=== PATIENT | female | born 1950 | race Caucasian/White ===

== ENCOUNTER 2018-03-08 08:52 | Inpatient (IN) | payer OTHER, MEDICARE ==
[~2018-03-08] VITALS: Ht 162.6 cm; Wt 65.8 kg
[~2018-03-08 08:52] MED LIST: AMBIEN5 M1 PO; AMIODARONE HCL200 M1 PO; ARTHRITIS PAIN650 M4 PO; ASPIRIN EC81 M1 PO; ATIVAN0.5 M1 PO; AUGMENTIN 875-1 EACH PO; BENADRYL25 MG PO; BENEFIBER1 EAC1 PO; BUPROPION XL150 MG PO; CIPRO500 M1 PO; COLACE100 M1 PO; COLCHICINE0.6 M2 PO; CYMBALTA60 M1 PO; DEMADEX20 M1 PO; DILAUDID2 M1 PO; FLAGYL500 MG PO; FONDAPARIN7.5 MG/0.6 SC; GABAPENTIN600 M1 PO; HYDROMORPHONE HC4 M1 PO; HYDROXYZIN SC; ITCH RELIEF CRE28 GM TOP; KEPPRA500 M1 PO; LEVOTHYROXINE50 MCG PO; LIDOCAINE1 EACH TOP; MELATONIN3 M4 PO; MIRALAX17 G1 PO; MORPHINE SULFAT15 M4 PO; MORPHINE SULFAT30 M3 PO; MS CONTIN30 M1 PO; MURO-12815 ML OU; PANTOPRAZOLE SO40 M1 PO; POTASSIUM CHLO20 ME2 PO; PREDNISONE 20MG20 MG PO; PREDNISONE10 M2 PO; PROVENTIL HFA6.7 GM INH; PYRIDOXINE HCL PO; RELISTOR12 MG/0.1 SQ; RILUTEK50 MG PO; SENNA8.6 M3 PO; TESSALON PERLE100 M1 PO; TUCKS1 EACH PR; TYLENOL EXTRA500 M2 PO; VALIUM5 M1 PO; VITAMIN B-650 M2 PO; VOLTAREN100 GM TOP; WELLBUTRIN XL150 M2 PO; WOMEN'S LAXATIVE5 M1 PO; ZOFRAN4 M2 PO
--- NOTE | 2018-03-08 08:57 | ED GENERAL ADULT ---
History of Present Illness General Chief Complaint: General Adult Stated Complaint: UNSAFE ALONE Source: patient, old records, EMS Exam Limitations: no limitations Allergies Coded Allergies: NSAIDS (Non-Steroidal Anti-Inflamma (PER VNS UNKNOWN REACTION 03/31/17) Pork/Porcine Containing Products (PER VNS 03/31/17) Triage Nurses Notes Reviewed? yes HPI: Patient has ALS and is dependent on home health services. The health care agency told her this morning that there were no longer be supplying her care and that she was unsafe at home so they called the ambulance to bring her to the emergency department. Patient has no current complaints. (Radha LOTT,Brad Talamantes) Vital Signs & Intake/Output Vital Signs & Intake/Output Vital Signs Date Time Temp Pulse Resp B/P B/P Pulse O2 O2 Flow FiO2 Mean Ox Delivery Rate 03/09 1344 98.0 92 20 174/88 98 Room Air 03/09 1133 97.9 94 20 138/84 98 Room Air 03/09 0916 98.5 90 20 181/95 97 Nasal 4.0L Cannula 03/09 0643 97.6 85 18 113/62 99 Nasal 35% Cannula 03/09 0527 80 20 99 BIPAP 35% 03/09 0516 81 98 03/09 0314 90 95 03/09 0230 81 20 98 BIPAP 35% 03/09 0104 89 97 03/09 0023 98.4 97 20 138/79 99 BIPAP 35% 03/08 2040 95 97 03/08 1921 98.2 95 16 173/82 98 Room Air ED Intake and Output 03/09 0000 03/08 1200 Intake Total 550 Output Total Balance 550 Intake, Oral 550 Number 3 Bowel Movements Patient 130 lb Weight Weight Estimated Measurement Method Reconcile Medications Acetaminophen 500 MG TABLET 2 TAB PO Q8H PRN PAIN (Reported) Albuterol Sulfate 2.5 MG/3 ML (0.083 %) VIAL.NEB 1 Vial INH/PORTIA Q6H SHORTNESS OF BREATH (Reported) Amiodarone (Cordarone) 200 MG TABLET 1 TAB PO QAM HEART (Reported) Aspirin (Ecotrin*) 81 MG TABLET.DR 1 TAB PO DAILY HEART/BLOOD (Reported) Bupropion HCl (Bupropion HCl Sr) 150 MG TABLET.ER 1 TAB PO BID DEPRESSION ( Reported) Colchicine 0.6 MG TABLET 1 TAB PO AD ALS (Reported) Duloxetine HCl (Cymbalta) 60 MG CAPSULE.DR 1 CAP PO DAILY DEPRESSION ( Reported) Fondaparinux Sodium 7.5 MG/0.6 ML SYRINGE 1 INJ SC DAILY DVT PPX -BLOOD THINNER (Reported) Gabapentin 600 MG TABLET 1 TAB PO TID PAIN (Reported) Ibuprofen 400 MG TABLET 1.5 TAB PO TID PRN PAIN (Reported) Levetiracetam (Keppra) 500 MG TABLET 1 TAB PO BID SEZIURE (Reported) Levothyroxine Sodium 50 MCG TABLET 1 TAB PO 0600 THYROID (Reported) Lorazepam (Ativan) 0.5 MG TABLET 1 TAB PO Q4H PRN ANXIETY (Reported) Lubiprostone (Amitiza) 24 MCG CAPSULE 1 CAP PO BID GI (Reported) Mag Hydrox/Al Hydrox/Simeth (Alum-Mag Hydroxide-Simeth Liq) 200 MG-200 MG-20 MG/ 5 ML ORAL.SUSP 30 ML PO Q6H PRN INDIGESTION (Reported) [METHYLCOBALAMIN] 25 MG INJ DAILY SUPPLEMENT (Reported) Methylnaltrexone [place] (Relistor) 12 MG/0.6 ML SYRINGE 12 MG SQ DAILY GI ( Reported) Mineral Oil/Hydrophil Petrolat (Aquaphor Ointment) 396 GM OINT...G. 1 DIANE TOP BID PRN SKIN (Reported) Morphine Sulfate (Ms Contin) 15 MG TABLET.ER 1 TAB PO TID PAIN (Reported) Morphine Sulfate 15 MG TABLET 1 TAB PO Q6P PRN PAIN (Reported) Naloxone HCl (Narcan) 4 MG/ACTUATION SPRAY 1 SPRAY SARI AD PRN UNRESPONSIVENESS (Reported) Ondansetron HCl (Zofran) 4 MG TABLET 1 TAB PO TID PRN NAUSEA (Reported) Pantoprazole Sodium 40 MG TABLET.DR 1 TAB PO BID GI (Reported) Polyethylene Glycol 3350 (Miralax) 17 GRAM POWD.PACK 1 PAC PO BID CONSTIPATION (Reported) dissolve in water Potassium Chloride 20 MEQ TAB.ER.PRT 40 MEQ PO QAM SUPPLEMENT (Reported) Pyridoxine HCl (Vitamin B-6) 50 MG TABLET 5 TAB PO DAILY SUPPLEMENT (Reported ) Riluzole (Rilutek) 50 MG TABLET 1 TAB PO BID als (Reported) Soft Lens Rinse-Store Solution (Saline Sensitive Eyes) 360 ML DROPS 2 DROP OU Q1H PRN DRY EYES (Reported) [TRIPLE MIX MOUTHWASH] 10 ML PO 4XDAILY PRN ACID REFLUX (Reported) Wheat Dextrin (Benefiber) 3 GRAM/4 GRAM POWD.PACK 1 PAC PO TID CONSTIPATION ( Reported) Witnando Beatriz (Tucks) (Unknown Strength) MED..PAD (Unknown Dose) MA 6XDAILY PRN HEMORRHOIDS (Reported) Zolpidem Tartrate (Ambien) 5 MG TABLET 1 TAB PO QHS SLEEP (Reported) (Malathi Candelaria MD) Past History Medical History Any Pertinent Medical History? see below for history Neurological: ALS meningioma EENT: NONE Cardiovascular: DRESSLERS SYNDROME Respiratory: chronic respiratory failure on 4 L nasal cannula and chronic BiPAP Gastrointestinal: NONE Hepatic: NONE Renal: NONE Musculoskeletal: NONE Psychiatric: NONE Endocrine: NONE Blood Disorders: NONE Cancer(s): NONE History of MRSA: No History of VRE: No History of CDIFF: No Surgical History Surgical History: appendectomy, hysterectomy Psychosocial History Who do you live with Patient/Self Services at Home Home Health Aide What is your primary language Spanish Tobacco Use: Never used ETOH Use: denies use Illicit Drug Use: denies illicit drug use Family History Family History, If Any: FATHER Myocardial infarction MOTHER Myocardial infarction Hx Contributory? No (Radha LOTT,Brad Talamantes) Review of Systems Review of Systems Constitutional: Reports: no symptoms. Respiratory: Reports: no symptoms. Cardiovascular: Reports: no symptoms. GI: Reports: no symptoms. Musculoskeletal: Reports: see HPI. Neurological/Psychological: Reports: no symptoms. (Radah LOTT,Brad Talamantes) Physical Exam Physical Exam General Appearance: well developed/nourished, no apparent distress, alert Eyes: Bilateral: PERRL, EOMI. Neck: normal inspection, supple Respiratory: normal breath sounds, chest non-tender, no respiratory distress, lungs clear Cardiovascular: regular rate/rhythm, murmur Neurologic/Psych: awake, alert, oriented x 3, normal mood/affect Core Measures ACS in differential dx? No CVA/TIA Diagnosis: No Sepsis Present: No Sepsis Focused Exam Completed? No (Radha LOTT,Brad Talamantes) Progress Differential Diagnoses I considered the following diagnoses in my evaluation of the patient: [Home safety evaluation] Initial ED EKG: none Hand-Off Endorsed To: Malathi Candelaria MD Endorsed Time: 1899 Pending: other (CASE MANAGEMENT) Comments: Case management is attempting to arrange for other home health aides. Patient to remain in the emergency department until a definitive disposition can it be obtained. (Radha LOTT,Brad Talamantes) Differential Diagnoses I considered the following diagnoses in my evaluation of the patient: Plan of Care: Orders Procedure Date/time Status ED Holding Orders 03/09 1625 Active Admit to inpatient 03/09 1625 Active Vital Signs 03/09 1625 Active Code Status 03/09 1625 Active CULTURE,URINE 03/09 1621 Active THERAPIST ORDERS 03/08 UNK Complete BIPAP 03/08 UNK Complete Current Medications Sig/Wendy Start time Last Medication Dose Stop Time Status Admin Ceftriaxone Sodium 1,000 MG ONCE ONE 03/09 1630 UNVr (Rocephin) 03/09 1631 Sodium Chloride 1,000 ML ONCE ONE 03/09 1630 UNVr (Normal Saline 0.9%) 03/10 0029 Zolpidem Tartrate 5 MG AT BEDTIME 03/08 2100 UNVr 03/08 (Ambien) 2105 Non-Formulary 7.5 UNIT DAILY 03/08 2015 UNVr 03/09 Medication 0903 (NON FORMULARY) Gabapentin 600 MG Q8 03/08 1400 UNVr 03/09 (Neurontin) 1415 Morphine Sulfate 30 MG Q6PRN PRN 03/08 1100 UNVr 03/09 (MSIR) 0903 Levetiracetam 500 MG BID 03/08 1045 UNVr 03/09 (Keppra) 0903 Levothyroxine Sodium 0.05 MG DAILY AC 03/08 1045 UNVr 03/09 (Synthroid) 0641 Bupropion HCl 150 MG BID 03/08 1044 UNVr 03/09 (Wellbutrin) 0903 Colchicine 600 MCG BID 03/08 1044 UNVr 03/09 (Colchicine 600MCG 0903 Tab) Docusate Sodium 100 MG BID 03/08 1044 UNVr 03/09 (Colace) 0903 Amiodarone HCl 200 MG DAILY 03/08 1043 UNVr 03/09 (Cordarone) 0903 Aspirin 81 MG DAILY 03/08 1043 UNVr 03/09 (Aspirin) 0903 Laboratory Tests 03/08/18 1815: Urine Color YEL, Urine Clarity HAZY H, Urine pH 7.0, Ur Specific [place] 1.015, Urine Protein NEG, Urine Ketones NEG, Urine Nitrite NEG, Urine Bilirubin NEG, Urine Urobilinogen 0.2, Ur Leukocyte Esterase LARGE H, Ur Microscopic SEDIMENT EXAMINED, Urine RBC RARE, Urine WBC 15-25 H, Ur Epithelial Cells FEW, Urine Bacteria MANY H, Urine Mucus RARE, Urine Hemoglobin NEG, Urine Glucose NEG Microbiology 03/09 1621 URINE ROUT: Urine Culture - ORD (Malathi Candelaria MD) Departure Departure Disposition: STILL A PATIENT Condition: Stable Clinical Impression Primary Impression: ALS (amyotrophic lateral sclerosis) Referrals: Noé LOTT,Yasmin Peng (PCP/Family) Departure Forms: Customer Survey General Discharge Information Admission Note Spoke With: Kayley Salazar MD Documentation of Exam: Documentation of any treatments & extenuating circumstances including Concerns Regarding Discharge (functional status, medication knowledge or non-compliance, living conditions, etc.) that warrant an admission rather than observation: [ Patient to be admitted for IV antibiotics, respiratory treatment, physical therapy, patient is very unsafe at home and will most likely need short-term rehabilitation.] (Radha LOTT,Brad Talamantes) Departure Comments Patient has been very stable tonight and is awaiting case management at 7:00 to reevaluate her for placement. She'll be signed out to Dr. Garcia. (Malathi Candelaria MD) Critical Care Note Critical Care Note Critical Care Time: non-applicable (Radha LOTT,Brad Talamantes)
[2018-03-08 14:02] LABS: ABSOLUTE BASOPHIL COUNT 0 /CUMM (0.0-0.2); ABSOLUTE EOSINOPHIL COUNT 0 /CUMM (0.0-0.7); ABSOLUTE GRANULOCYTE CT 4.4 /CUMM (1.4-6.5); ABSOLUTE LYMPH COUNT 1.2 /CUMM (1.2-3.4); ABSOLUTE MONOCYTE COUNT 0.6 /CUMM (0.10-0.60); BASOPHIL % 0 % (0.0-2.0); EOSINOPHIL % 0.1 % (0-5); HEMATOCRIT 32.8 % (37-47); MEAN CORPUSCULAR HGB 23.3 PG (27.0-31.0); MEAN CORPUSCULAR HGB CONC 31.4 G/DL (33.0-37.0); MEAN PLATELET VOLUME 9.7 FL (7.4-10.4); PLATELET COUNT 408 /CUMM (130-400); RBC DISTRIBUTION WIDTH 17.7 % (11.5-14.5); RED BLOOD CELL CT 4.43 /CUMM (4.20-5.40); WHITE BLOOD CELL COUNT 6.2 /CUMM (4.8-10.8)
[2018-03-08] MEDS ORDERED: ACETAMINOPHEN500 M4 PO (18:45)
[2018-03-08] MEDS ORDERED: ALBUTEROL2.5 MG/3 M INH/SOL (18:47)
[2018-03-08] MEDS ORDERED: AMIODARONE HCL200 M1 PO (18:48)
[2018-03-08] MEDS ORDERED: AMBIEN5 M1 PO (18:48)
[2018-03-08] MEDS ORDERED: AQUAPHOR OINTM396 GM TOP (18:51)
[2018-03-08] MEDS ORDERED: BUPROPION HCL150 M4 PO (18:53)
[2018-03-08] MEDS ORDERED: IBUPROFEN400 M1 PO (18:55)
[2018-03-08] MEDS ORDERED: AMITIZA24 MC1 PO (18:57)
[2018-03-08] MEDS ORDERED: ALUM-MAG HYDRO360 ML PO (18:59)
[2018-03-08] MEDS ORDERED: METHYLCOBALAMIN INJ (19:01)
[2018-03-08] MEDS ORDERED: NARCAN4 MG NAS (19:04)
[2018-03-08] MEDS ORDERED: RILUTEK50 MG PO (19:15)
[2018-03-08] MEDS ORDERED: SALINE SENSITI360 ML OU (19:16)
[2018-03-08] MEDS ORDERED: [UNRECOGNIZED DRUG - OTHER] PO (19:19)
[2018-03-08] MEDS ORDERED: TUCKS1 EACH PR (19:20)
--- NOTE | 2018-03-09 16:40 | History & Physical ---
Libby Mares 03/09/18 1640: General Information and HPI MD Statement: I have seen and personally examined DAILY SALGADO and documented this H&P. The patient is a 67 year old F who presented with a patient stated chief complaint of being denied by home health services Source of Information: patient History of Present Illness: 67 yo F with past medical history significant for ALS on Rilutek and infusion, chronic BiPAP, chronic respiratory failure on 4 L nasal cannula, Angela's syndrome, meningioma presents to the hospital after being denied services by home health services. She states she was in her usual state of health and had apparently gone to see a concert with her home health aide. She endorses a very healthy and pleasant rapport with the aide. Yesterday, apparently the patient was woken up by EMS personnel who were called by the home health agency to escort her to the hospital after they found her health requirements overbearing. She was surprised and shocked as she was apparently refused assistance to even go to the bathroom. The patient has been in the ED for 2 days now where she was evaluated by another health care agency which concluded that given her requrement of significant assistance she would benefit the most from placement at a fdc facility. She is emotionally distraught in the ED as she does not want to move out from her home especially without her cat. Allergies/Medications Allergies: Coded Allergies: NSAIDS (Non-Steroidal Anti-Inflamma (PER [facility] UNKNOWN REACTION 03/31/17) Pork/Porcine Containing Products (PER VNS 03/31/17) Home Med list Acetaminophen 500 MG TABLET 2 TAB PO Q8H PRN PAIN (Reported) Albuterol Sulfate 2.5 MG/3 ML (0.083 %) VIAL.NEB 1 Vial INH/PORTIA Q6H SHORTNESS OF BREATH (Reported) Amiodarone (Cordarone) 200 MG TABLET 1 TAB PO QAM HEART (Reported) Aspirin (Ecotrin*) 81 MG TABLET.DR 1 TAB PO DAILY HEART/BLOOD (Reported) Bupropion HCl (Bupropion HCl Sr) 150 MG TABLET.ER 1 TAB PO BID DEPRESSION ( Reported) Colchicine 0.6 MG TABLET 1 TAB PO BID ALS (Reported) Duloxetine HCl (Cymbalta) 60 MG CAPSULE.DR 1 CAP PO DAILY DEPRESSION ( Reported) Fondaparinux Sodium 7.5 MG/0.6 ML SYRINGE 1 INJ SC DAILY DVT PPX -BLOOD THINNER (Reported) Gabapentin 600 MG TABLET 1 TAB PO TID PAIN (Reported) Ibuprofen 400 MG TABLET 1.5 TAB PO TID PRN PAIN (Reported) Levetiracetam (Keppra) 500 MG TABLET 1 TAB PO BID SEZIURE (Reported) Levothyroxine Sodium 50 MCG TABLET 1 TAB PO 0600 THYROID (Reported) Lidocaine (Lidoderm) 5 % ADH..PATCH 1 PAT TOP DAILY PAIN (Reported) may wear up to 12 hours Lorazepam (Ativan) 0.5 MG TABLET 1 TAB PO Q4H PRN ANXIETY (Reported) Lubiprostone (Amitiza) 24 MCG CAPSULE 1 CAP PO BID GI (Reported) Mag Hydrox/Al Hydrox/Simeth (Alum-Mag Hydroxide-Simeth Liq) 200 MG-200 MG-20 MG/ 5 ML ORAL.SUSP 30 ML PO Q6H PRN INDIGESTION (Reported) Melatonin 3 MG TABLET 1 TAB PO QPM SLEEP (Reported) [METHYLCOBALAMIN] 25 MG INJ DAILY SUPPLEMENT (Reported) Methylnaltrexone [place] (Relistor) 12 MG/0.6 ML VIAL 12 MG IV Q48H OPIOD CONSITPATION (Reported) Methylnaltrexone [place] (Relistor) 12 MG/0.6 ML SYRINGE 12 MG SQ DAILY GI ( Reported) Mineral Oil/Hydrophil Petrolat (Aquaphor Ointment) 396 GM OINT...G. 1 DIANE TOP BID PRN SKIN (Reported) Morphine Sulfate (Ms Contin) 30 MG TABLET.ER 1 TAB PO TID PAIN (Reported) Naloxone HCl (Narcan) 4 MG/ACTUATION SPRAY 1 SPRAY SARI AD PRN UNRESPONSIVENESS (Reported) Ondansetron HCl (Zofran) 4 MG TABLET 1 TAB PO TID PRN NAUSEA (Reported) Pantoprazole Sodium 40 MG TABLET.DR 1 TAB PO BID GI (Reported) Polyethylene Glycol 3350 (Miralax) 17 GRAM POWD.PACK 1 PAC PO BID CONSTIPATION (Reported) dissolve in water Potassium Chloride 20 MEQ TAB.ER.PRT 40 MEQ PO QAM SUPPLEMENT (Reported) Pyridoxine HCl (Vitamin B-6) 50 MG TABLET 250 MG PO QNOON VITAMIN (Reported) Pyridoxine HCl (Vitamin B-6) 50 MG TABLET 5 TAB PO DAILY SUPPLEMENT (Reported ) Riluzole (Rilutek) 50 MG TABLET 1 TAB PO BID als (Reported) Sennosides (Senna) 8.6 MG TABLET 2 TAB PO QPM CONSTIPATION (Reported) Soft Lens Rinse-Store Solution (Saline Sensitive Eyes) 360 ML DROPS 2 DROP OU Q1H PRN DRY EYES (Reported) Torsemide (Demadex) 20 MG TABLET 40 MG PO QAM FLUID (Reported) [TRIPLE MIX MOUTHWASH] 10 ML PO 4XDAILY PRN ACID REFLUX (Reported) Wheat Dextrin (Benefiber) 3 GRAM/4 GRAM POWD.PACK 1 PAC PO TID CONSTIPATION ( Reported) Witch Beatriz (Tucks) (Unknown Strength) MED..PAD (Unknown Dose) [place] 6XDAILY PRN HEMORRHOIDS (Reported) Zolpidem Tartrate (Ambien) 5 MG TABLET 1 TAB PO QHS SLEEP (Reported) Past History Travel History Traveled to [place] past 21 day No Medical History Neurological: ALS meningioma EENT: NONE Cardiovascular: DRESSLERS SYNDROME Respiratory: chronic respiratory failure on 4 L nasal cannula and chronic BiPAP Gastrointestinal: NONE Hepatic: NONE Renal: NONE Musculoskeletal: NONE Psychiatric: NONE Endocrine: NONE Blood Disorders: NONE Cancer(s): NONE History of MRSA: No History of VRE: No History of CDIFF: No Surgical History Surgical History: appendectomy, hysterectomy Past Family/Social History Family History Relations & Conditions if any FATHER Myocardial infarction MOTHER Myocardial infarction Psychosocial History Services at Home: Home Health Aide ETOH Use: denies use Illicit Drug Use: denies illicit drug use Functional Ability ADLs Needs Assist: dressing, eating, toileting, bathing. Ambulation: walker IADLs Needs Assist: shopping, housework, finances, food prep, telephone, transportation, medication admin. Review of Systems Review of Systems Constitutional: Denies: chills, diaphoresis, fever, malaise. Cardiovascular: Denies: chest pain, edema, orthopena, palpitations, peripheral edema. Respiratory: Denies: cough, hemoptysis, orthopnea, short of breath. GI: Reports: constipation. Denies: diarrhea, distention, bowel incontinence, melena , nausea, bloody stool, vomiting. Genitourinary: Denies: discharge, dysuria, frequency, hematuria. Musculoskeletal: Reports: joint pain, joint swelling, muscle stiffness. Skin: Denies: change in skin color, change in hair/nails, dryness. Neurological/Psychological: Reports: depressed, emotional problems, pre-existing deficit, unable to move upper ext. Hematologic/Endocrine: Denies: bruising, bleeding. Exam & Diagnostic Data Last 24 Hrs of Vital Signs/I&O Vital Signs Date Time Temp Pulse Resp B/P B/P Pulse O2 O2 Flow FiO2 Mean Ox Delivery Rate 03/098 97.5 90 16 144/80 97 BIPAP 03/09 2125 90 97 03/09 2013 98.8 99 24 164/100 96 Nasal 5.0L Cannula 03/09 1900 97 Nasal 4.0L Cannula 03/09 1742 98.6 94 20 159/83 96 Nasal 4.0L Cannula 03/09 1344 98.0 92 20 174/88 98 Room Air 03/09 1133 97.9 94 20 138/84 98 Room Air 03/09 0916 98.5 90 20 181/95 97 Nasal 4.0L Cannula 03/09 0643 97.6 85 18 113/62 99 Nasal 35% Cannula 03/09 0527 80 20 99 BIPAP 35% 03/09 0516 81 98 03/09 0314 90 95 03/09 0230 81 20 98 BIPAP 35% 03/09 0104 89 97 03/09 0023 98.4 97 20 138/79 99 BIPAP 35% Intake & Output 03/09 1600 03/09 0800 03/09 0000 Intake Total 120 550 Output Total 200 Balance -80 550 Intake, Oral 120 550 Number 3 Bowel Movements Output, Urine 200 Physical Exam General Appearance Alert, Oriented X3, Cooperative, Mild Distress Skin No Rashes Sepsis Skin Exam (color): Normal for Ethnicity Neck Supple Cardiovascular Regular Rate, Normal S1, Normal S2 Lungs Clear to Auscultation Abdomen Normal Bowel Sounds, Soft, No Tenderness Neurological Normal Gait, Normal Speech, Strength at 5/5 X4 Ext Extremities No Edema, Normal Pulses, right knee brace with knee swelling and limited ROM Assessment/Plan Assessment: This is a 67 yo Female medical history significant for ALS on Rilutek and infusion, chronic BiPAP, chronic respiratory failure on 4 L nasal cannula, Angela's syndrome, meningioma who was brought to the ED after home health services denied her care.Given her current state of health, she is an extremely unsafe discharge home and was hence admitted to [facility] service to ascertain a plan of care for her. Her vitals in the ED were stable. Labs were only significant for asymptomatic bacteuria. Problems: 1. ALS 2. Asymptomatic bacteuria 3. Right knee sprain 4. Poor social situation Plan: 1. We will admit the patient to Gen Med service 2. Encourage oral hydration 3 . PT evaluation in the Am 4. Case management evaluation 5. Social work consult 6. We would call the infusion centre at [facility] informing them that the patient has been admitted to the hospital. DVT prophylaxis: Fondaparinux Code status: Full code As Ranked By This Provider Problem List: 1. ALS (amyotrophic lateral sclerosis) 2. Asymptomatic bacteriuria 3. Knee sprain 4. Poor social situation Core Measures/Misc (04/03) Acute Coronary Syndrome ACS Diagnosis: No Congestive Heart Failure Congestive Heart Failure Diagnosis No Cerebrovascular Accident CVA/TIA Diagnosis: No VTE (View Protocol) VTE Risk Factors Age>40 No Mechanical VTE Prophylaxis d/t N/A MechProphylax Ordered No VTE Pharm Prophylaxis d/t NA PharmProphylax ordered Sepsis (View protocol) Sepsis Present: No If YES complete Sepsis Event Note If YES complete Sepsis Event Note Kayley Salazar MD 03/09/18 1756: Core Measures/Misc (04/03) Sepsis (View protocol) If YES complete Sepsis Event Note If YES complete Sepsis Event Note Attending MD Review Statement Attending Statement Attending MD Statement: examined this patient, discuss w/resident/PA/CUT PRESSMAN, agreed w/resident/PA/CUT PRESSMAN, reviewed EMR data (avail), discussed with nursing, discussed with case mgmt, amended to note Attending Assessment/Plan: Patient is a very pleasant 67-year-old female with history of ALS. She is on home oxygen and requires BiPAP therapy at night and sometimes during the day. At baseline she is wheelchair-bound and requires assistance of 1 aide. She is able to operate her electric wheelchair by herself. She is able to perform some activities such as gardening. She reports being able to usual state of health until later on during the day yesterday when she awoke and found for emergency services personnel around her bed. Apparently her home health aid stated that she was unable to fully care for the patient and left calling 911. There was no reported acute change in patient's status. Apparently the agency stated that they would not be able to provide the level of care that the patient required. In the ER yesterday she was evaluated by the agency on aging care team to determine if another home care agency could be obtained for the patient. However patient was unable to participate in physical therapy so the recommendation from the agency was that she should be admitted to the fdc facility however for physical condition is optimized and then reevaluated for reinstatement of another home care agency. Patient is understandably very upset about this. She reports that she was given on along well with her aide. She reports that he has been no change in her functional status at home. She would very much like to go home however she is currently not safe to return home alone and has no care plan in place for now. Workup in the emergency room has been unrevealing. She is afebrile. She is hemodynamically stable. She has no leukocytosis. She has chronic anemia which is at baseline. She was noted to have mildly abnormal UA however she denies any dysuria or urinary frequency. She did receive a dose of Rocephin while in the emergency room today. On examination she is a very pleasant lady. She is not in any respiratory distress. She is emotionally distraught about being in the hospital. She has contraction deformity of her hands. She has a knee brace in place on the right knee following a fall about a week ago. Imaging at that time showed no evidence of any fracture. Lungs are clear bilaterally. Abdomen is soft and nontender. Problems: 1. Physical deconditioning secondary to ALS. 2. Chronic hypoxic respiratory failure. Plan: -At this point in time patient is unsafe to return home alone. She has no safe home discharge plan. -She will be admitted to the hospital and will be evaluated by the physical therapy service. -If her functional status returns to the point where she requires only the assistance of 1 aide she may be discharged back home. If she continues to require significant assistance she will benefit from being discharged to a fdc facility for short-term rehabilitation. -She has an abnormal UA but no clinical evidence of infection are present. Hold off further antibiotic therapy. -Continue oxygen supplementation. BiPAP therapy at night and during the daytime when she is asleep. -Chemical DVT prophylaxis. -She has a PICC line in place him have left upper extremity. She reports that she is under the care of the net developer at [facility] and receives infusion therapy for her ALS. She has an appointment scheduled with her net developer tomorrow. Recommended following up with the net developer to notify them that she is hospitalized here at [facility] Arnold LOTT,Kevin 03/09/18 1946: Core Measures/Misc (04/03) Sepsis (View protocol) If YES complete Sepsis Event Note If YES complete Sepsis Event Note Resident Review Statement Resident Statement: examined this patient, discussed with internet merchant, amended to note Other Findings: 67-year-old very pleasant lady with a medical history significant for ALS on Rilutek and infusion, chronic BiPAP, chronic respiratory failure on 4 L nasal cannula, Angela's syndrome, meningioma, presents to [facility] ED after being brought in by ambulance after apparently the [facility] aide activated EMS because the aide felt that she was no longer able to provide the level of care of the patient needed. Patient at baseline is wheelchair bound due to her progressive ALS, and is not independent with her ADLs. She was evaluated yesterday at the ED for placement with a nursing agency but was not able to participate in PT session. She cannot be sent home as this will be an unsafe given she currently does not have any home health aid services. Impression Generalized malaise and physical deconditioning. This is probably secondary to her deteriorating ALS. Positive UA suggestive of bacteria, however a symptomatic with no leukocytosis. Plan We'll admit to GEN med Asymptomatic bacteriuria, stop antibiotics. PT evaluation tomorrow morning Case management tomorrow morning Social work tomorrow morning Continue all home meds Will contat [facility] [place] to notify patient has been admitted DVT:On arixtra Code status:FC
--- NOTE | 2018-03-09 17:56 | Admission Certification ---
Admission Certification Certification Statement - As attending physician, I certify that at the time of - admission, based on clinical presentation, severity of - symptoms, need for further diagnostic testing and - therapeutic interventions, and risk of adverse outcomes - without in-hospital treatment, in my clinical assessment, - this patient requires an acute hospital stay for a minimum - of two nights or longer. I have also considered psychsocial - factors such as support system, advanced age, financial - issues, cognitive issues, and failed out-patient treatments, - past re-admission history, safety of patient, and lack of - compliance as applicable. Specific rationale supporting this admission is: Patient has been hospitalized with plans to arrange for a safe discharge plan.
[2018-03-09 20:13] VITALS: BP 164/100
[2018-03-09] MEDS ORDERED: RELISTOR12 MG/0.2 IV (20:22)
[2018-03-09] MEDS ORDERED: SENNA8.6 M3 PO (20:24)
[2018-03-09] MEDS ORDERED: VITAMIN B-650 M2 PO (20:25)
[2018-03-09] MEDS ORDERED: LIDODERM1 EACH TOP (20:26)
[2018-03-09] MEDS ORDERED: MELATONIN3 M4 PO (20:26)
[2018-03-09] MEDS ORDERED: DEMADEX20 M1 PO (20:27)
[2018-03-09 22:58] VITALS: BP 144/80
[2018-03-10 06:30] VITALS: BP 130/80
--- NOTE | 2018-03-10 07:40 | PN- Housestaff ---
Libby Mares 03/10/18 0740: Subjective Follow-up For: Asymtomatic bacteurai Subjective: Patient was seen and examined at bedside. She is tearful and is not able to talk. She does display suicidal ideation. Review of Systems Constitutional: Reports: see HPI. Objective Last 24 Hrs of Vital Signs/I&O Vital Signs Date Time Temp Pulse Resp B/P B/P Pulse O2 O2 Flow FiO2 Mean Ox Delivery Rate 03/11 1059 90 128/84 03/11 0809 90 97 03/11 0629 98.0 84 20 108/64 95 03/11 0025 81 95 03/11 0000 BIPAP 03/10 2300 98.1 78 20 110/60 93 Nasal Cannula 03/10 1932 110 94 03/10 1600 Nasal 4.0L Cannula 03/10 1447 98.4 91 20 114/60 96 Nasal 5.0L Cannula Intake & Output 03/11 1600 03/11 0800 03/11 0000 Intake Total 120 610 Output Total 100 210 Balance 20 400 Intake, Oral 120 610 Output, Urine 100 210 Physical Exam General Appearance: Alert, Oriented X3, Cooperative, No Acute Distress Neck: Supple Cardiovascular: Regular Rate, Normal S1, Normal S2 Lungs: Clear to Auscultation Extremities: No Edema, Normal Pulses Assessment/Plan Assessment: This is a 67 yo Female medical history significant for ALS on Rilutek and infusion, chronic BiPAP, chronic respiratory failure on 4 L nasal cannula, Angela's syndrome, meningioma is admitted to the [facility] service after home health services denied her care.Given her current state of health, she is an extremely unsafe discharge home and was hence admitted to [facility] service to ascertain a plan of care for her. Her vitals in the ED were stable. Labs were only significant for asymptomatic bacteuria. Problems: 1. ALS 2. Asymptomatic bacteuria 3. Right knee sprain 4. Poor social situation Plan: 1. Pscych consult for suidcidal ideation, questionable intent 2. Encourage oral hydration 3 . PT evaluation in the Am 4. Case management evaluation 5. Social work consult 6. We would call the infusion centre at [facility] informing them that the patient has been admitted to the hospital. I was called by he nurse regarding some confusion regarding dose of Fondaparinux. Apparently, the patient was given the wrong dose in the morining in the morning. The nurse states she reported the incident to the rainbow trout farm manager. DVT prophylaxis: Fondaparinux Code status: Full code Problem List: 1. Asymptomatic bacteriuria 2. ALS (amyotrophic lateral sclerosis) 3. Suicidal ideation 4. Knee sprain Pain Ratin Pain Location: none Pain Goal: Remain pain free Pain Plan: none Tomorrow's Labs & Rationales: none Flor Cedillo 03/10/18 1049: Attending MD Review Statement Attending Statement Attending MD Statement: examined this patient, discuss w/resident/PA/MECHANIC AND WELDER, agreed w/resident/PA/MECHANIC AND WELDER, discussed with family, reviewed EMR data (avail), discussed with nursing, discussed with case mgmt, reviewed images, amended to note Attending Assessment/Plan: 67-year-old female with history of ALS. She is on home oxygen and requires BiPAP therapy at night and sometimes during the day. At baseline she is wheelchair-bound and requires assistance of 1 aide. She is able to operate her electric wheelchair by herself. She is able to perform some activities such as gardening Apparently her home stereo equipment installer stated that she was unable to fully care for the patient and left calling 911. There was no reported acute change in patient's status. Apparently the agency stated that they would not be able to provide the level of care that the patient required. In the ER yesterday she was evaluated by the agency on aging care team to determine if another home care agency could be obtained for the patient. However patient was unable to participate in physical therapy so the recommendation from the agency was that she should be admitted to the [facility] facility however for physical condition is optimized and then reevaluated for reinstatement of another home care agency. Patient seen/examined bedside. Patient tearful at conversation. Vitals stable. No suicidal ideations Problems: 1. Physical deconditioning secondary to ALS. 2. Chronic hypoxic respiratory failure. 3. ALS on infusion therapy recently diagnosed 4 years ago. 4. Assistance with daily activities 5. Depressive behaviour Plan: -Social admission -She will be admitted to the hospital and will be evaluated by the physical therapy service. -If her functional status returns to the point where she requires only the assistance of 1 aide she may be discharged back home. If she continues to require significant assistance she will benefit from being discharged to a [facility] facility for short-term rehabilitation. -Continue oxygen supplementation. BiPAP therapy at night and during the daytime when she is asleep. -Pyshc consult. Provide supportive care for ALS. -She has a PICC line in place him have left upper extremity. She reports that she is under the care of the electrical discharge machine operator at [facility] and receives infusion therapy for her ALS. Inform her electrical discharge machine operator. -Chemical DVT prophylaxis.
[2018-03-10 09:02] LABS: ABSOLUTE BASOPHIL COUNT 0 /CUMM (0.0-0.2); ABSOLUTE EOSINOPHIL COUNT 0 /CUMM (0.0-0.7); ABSOLUTE GRANULOCYTE CT 4.2 /CUMM (1.4-6.5); ABSOLUTE LYMPH COUNT 1.9 /CUMM (1.2-3.4); ABSOLUTE MONOCYTE COUNT 0.6 /CUMM (0.10-0.60); BASOPHIL % 0.3 % (0.0-2.0); EOSINOPHIL % 0.5 % (0-5); GRANULOCYTE % 62.2 % (42.2-75.2); HEMATOCRIT 31.8 % (37-47); MEAN CORPUSCULAR HGB 23.3 PG (27.0-31.0); MEAN CORPUSCULAR HGB CONC 30.9 G/DL (33.0-37.0); MEAN CORPUSCULAR VOLUME 75.3 FL (81.0-99.0); MEAN PLATELET VOLUME 10.5 FL (7.4-10.4); PLATELET COUNT 408 /CUMM (130-400); RBC DISTRIBUTION WIDTH 17.5 % (11.5-14.5); RED BLOOD CELL CT 4.23 /CUMM (4.20-5.40); WHITE BLOOD CELL COUNT 6.7 /CUMM (4.8-10.8)
--- NOTE | 2018-03-10 14:24 | Cons- Psychiatry ---
Psychiatric Consult Date of Consult: 03/10/18 Reason for Consult: Assessment of suicidal ideation History of Present Illness: "Maybe I will just take a gun and shoot myself" The patient is a 67-year-old female has a history of ALS, chronic BiPAP, chronic respiratory failure on continuous O2, Angela's syndrome and meningioma. The patient has been living at home with 24 hour care. She denies any difficulties with her home situation. On the morning prior to presentation she was awoken in her bed by EMS. They told her that it had been determined that she was no longer able to live at home and that she needed to go to a detention. The patient called the nursing agency to inquire as to what was going on says she was informed that they "dropped the case". The patient spent 2 days in the emergency room during which time she was assessed by another healthcare agency who also determined that she needed more than home-based care. The patient reports that on the night prior to presentation she had taken her age to a concert, they had gone for ice cream and spent time at the beach. He was enjoyable evening and she is very distressed that her age and you have the plan to have her removed from her home the next day. While at physical therapy today the patient reported that she might as well be . She states that her mood has been good until the events mentioned above. She has been sleeping and eating well. Concentration is good. She has not been and is not suicidal "I may say that but I would never do it". She is however very distressed at the prospect of going to a detention. There are no psychotic symptoms. Per the patient and case management, some of the statements made by the healthcare agency were erroneous. The patient has a Tatianna lift which she used for only 3 days when she had a cast on her leg and is not dependent on it. She walked to the bathroom here on 8 at this morning. The patient is being reassessed by her home care agency this afternoon and hopes to be allowed to return home when medically cleared. Past psychiatric history: The patient is on duloxetine. This was prescribed for her when she was hospitalized 3 years ago and diagnosed with ALS, Angela syndrome and meningioma. She has never been hospitalized psychiatrically. She has no other psychiatric history. There is no history of deliberate self-harm or suicide attempts. Substance use history: None Family psychiatric history: None Social and personal history: The patient was brought up in [place], [place] and later [facility]. She is Gnosticism. She has an [employer] from [employer]. 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 She was for a brief time and has 1 daughter, Cecy to whom she is very close. She has a brother who is a urologist in [place] and a sister who lives in [facility]. She seems to have good relationships with them also. As mentioned she has been living alone with home care. Her daughter spends 2 or 3 days a week with her and [place]. Allergies: Coded Allergies: NSAIDS (Non-Steroidal Anti-Inflamma (PER VNS UNKNOWN REACTION 03/31/17) Pork/Porcine Containing Products (PER VNS 03/31/17) Current Medications: Med Acetaminophen 1,000 MG IV Q6P PRN 03/09/18 1715 Acetaminophen 650 MG PO Q6P PRN 03/09/18 204 Amiodarone HCl 200 MG PO QAM 03/10/18 0900 Aspirin Buffered 81 MG PO DAILY 03/10/18 0900 Bupropion HCl 150 MG PO BID 03/09/18 2100 Colchicine 600 MCG PO BID 03/09/18 2100 Docusate Sodium 100 MG PO BID 03/08/18 1044 Duloxetine HCl 60 MG PO DAILY 03/10/18 0900 Fondaparinux 7.5 MG SC DAILY 03/11/18 0900 Gabapentin 600 MG PO Q8 03/09/18 2200 Levetiracetam 500 MG PO BID 03/09/18 2100 Levothyroxine Sodium 0.05 MG PO 0600 03/10/18 0600 Lorazepam 0.5 MG PO Q4P PRN 03/09/18 2000 Lubiprostone 24 MCG PO BID 03/09/18 2100 Morphine Sulfate 30 MG PO Q6PRN PRN 03/08/18 1100 Morphine Sulfate 30 MG PO TID 03/09/18 2100 Morphine Sulfate 1 MG IV Q6-PRN PRN 03/09/18 204 Omeprazole 40 MG PO BID 03/09/18 2100 Ondansetron HCl 4 MG PO TID PRN 03/09/182014 Polyethylene Glycol 17 GM PO DAILY 03/09/182008 Potassium Chloride 40 MEQ PO QAM 03/10/18 0900 Pyridoxine HCl 250 MG PO DAILY 03/10/18 0900 Riluzole 50 MG PO 0600,1600 03/10/18 0600 Zolpidem Tartrate 5 MG PO QPM 03/09/18 2100 Past History Past Medical History Neurological: ALS meningioma EENT: NONE Cardiovascular: DRESSLERS SYNDROME Respiratory: chronic respiratory failure on 4 L nasal cannula and chronic BiPAP Gastrointestinal: HEMMROIDS Hepatic: NONE Renal: NONE Musculoskeletal: NONE Psychiatric: NONE Endocrine: NONE Blood Disorders: NONE Cancer(s): NONE Past Surgical History Surgical History: appendectomy, hysterectomy Assessment/Plan Mental Status Mental Status Exam: 67-year-old female wearing an orange been done, slightly slumped to one side. Alert and oriented. Very pleasant with good eye contact. Speech normal in rate , rhythm, volume and tone. At the end of the interview she is weak and somewhat which was reflected in the volume and rate of her speech. She described her mood overall is good, her affect showed good range. She was not suicidal or homicidal. The patient is very hopeful that she can return home as she is being seen by the agency later this afternoon. Thought process is normal in tempo, stream and form with no delusions or obsessions. Attention and concentration are good. There is no perceptual abnormality. Impulse control is good. Recent and remote memory are intact. Intelligence level is above average, fund of knowledge above average, use of language appropriate. The patient's insight is good and her judgment is unimpaired. Diffential Diagnosis: History of depression in full sustained remission. Impression: The patient does not have a psychiatric illness at this time. She has a history of depression and is maintained on duloxetine prescribed by her primary care doctor. She is not suicidal. Her statement was a reaction to a very significant psychosocial stressor and according to the patient did not suggest intent. Consciousness is clear, judgment unimpaired. Provisional Treatment Plan: No psychiatric intervention required at this time. Psychiatry will sign off for now. Please feel free to contact us if we can be of any further assistance. Over the weekend or after 4 PM psychiatry can be contacted by calling Inpatient Psychiatry.
[2018-03-10 14:47] VITALS: BP 114/60
--- NOTE | 2018-03-10 15:43 | Patient Discharge Instructions ---
Discharge Instructions General Discharge Information You were seen/treated for: Asymptomatic bacteuria Special Instructions: 1. Please see your appointment with your primnary care doctor within a week of discharge. 2. Please re-schedule your appointment at [facility] for your ALS medications Diet Continue normal diet: Yes Acute Coronary Syndrome Inclusion Criteria At DC or during hospital stay patient has or had the following: ACS DIAGNOSIS No Discharge Core Measures Meds if any: Prescribed or Continued at Discharge Meds if any: NOT Prescribed or Continued at Discharge Congestive Heart Failure Inclusion Criteria At DC or during hospital stay patient has or had the following: CHF DIAGNOSIS No Discharge Core Measures Meds if any: Prescribed or Continued at Discharge Meds if any: NOT Prescribed or Continued at Discharge Cerebrovascular accident Inclusion Criteria At DC or during hospital stay patient has or had the following: CVA/TIA Diagnosis No Discharge Core Measures Meds if any: Prescribed or Continued at Discharge Meds if any: NOT Prescribed or Continued at Discharge Venous thromboembolism Inclusion Criteria VTE Diagnosis No VTE Type NONE VTE Confirmed by (Test) NONE Discharge Core Measures - Per Current guidelines, there needs to be overlap - treatment for the first 5 days of Warfarin therapy. - If discharged on Warfarin prior to 5 days of - overlap therapy, the patient will need to be - assessed for post discharge needs including - *Post discharge parental anticoagulation - *Warfarin and/or parental anticoagulation education - *Follow up date to check INR post discharge At least 5 days overlap therapy as Inpatient No Meds if any: Prescribed or Continued at Discharge Note: Overlap Therapy is Warfarin and Anticoagulant Meds if any: NOT Prescribed or Continued at Discharge
--- NOTE | 2018-03-10 15:43 | Discharge Summary ---
Hospital Course Allergies: Coded Allergies: NSAIDS (Non-Steroidal Anti-Inflamma (PER VNS UNKNOWN REACTION 03/31/17) Pork/Porcine Containing Products (PER VNS 03/31/17) Discharge Instructions Medications at Discharge Discharge Medications: Continue taking these medications: Amiodarone (Cordarone) 200 MG TABLET 1 Tablet ORAL Every Morning Comments: Last Taken: 03/13/18 Time: 11:21 Aspirin (Ecotrin*) 81 MG TABLET.DR 1 Tablet ORAL DAILY Comments: Last Taken: 03/13/18 Time: 11:16 Wheat Dextrin (Benefiber) 3 GRAM/4 GRAM POWD.PACK 1 Packet ORAL THREE TIMES DAILY Comments: NOT GIVEN Colchicine (Colchicine) 0.6 MG TABLET 1 Tablet ORAL TWICE DAILY Comments: Last Taken: 05/31/17 Time: 1015AM Duloxetine HCl (Cymbalta) 60 MG CAPSULE.DR 1 Capsule ORAL DAILY Comments: Last Taken:03/13/18 Time: 11:15 Levetiracetam (Keppra) 500 MG TABLET 1 Tablet ORAL TWICE DAILY Comments: Last Taken:03/13/18 Time: 1115 Levothyroxine Sodium (Levothyroxine Sodium) 50 MCG TABLET 1 Tablet ORAL 0600 Comments: NOT GIVEN IN HOSPITAL Lorazepam (Ativan) 0.5 MG TABLET 1 Tablet ORAL Q4H as needed for ANXIETY Comments: Last Taken: 03/10/18 Time: 12:34 Polyethylene Glycol 3350 (Miralax) 17 GRAM POWD.PACK 1 Packet ORAL TWICE DAILY Instructions: dissolve in water Comments: Last Taken: 03/12/18 Time: 1908 Gabapentin (Gabapentin) 600 MG TABLET 1 Tablet ORAL THREE TIMES DAILY Comments: Last Taken: 03/13/18 Time: 1115 Ondansetron HCl (Zofran) 4 MG TABLET 1 Tablet ORAL THREE TIMES DAILY as needed for NAUSEA Comments: Last Taken:03/12/18 Time:01:36 Pantoprazole Sodium (Pantoprazole Sodium) 40 MG TABLET.DR 1 Tablet ORAL TWICE DAILY Comments: NOT GIVEN IN HOSPITAL Potassium Chloride (Potassium Chloride) 20 MEQ TAB.ER.PRT 40 Millequivalent ORAL Every Morning Comments: Last Taken:03/13/18 Time: 1115 Methylnaltrexone Harrison (Relistor) 12 MG/0.6 ML SYRINGE 12 Milligram SUB-Q DAILY Comments: NOT GIVEN IN HOSPITAL Riluzole (Rilutek) 50 MG TABLET 1 Tablet ORAL TWICE DAILY Comments: Last Taken: 03/13/18 Time: 0535 Pyridoxine HCl (Vitamin B-6) 50 MG TABLET 5 Tablet ORAL DAILY Comments: NOT GIVEN IN HOSPITAL Fondaparinux Sodium (Fondaparinux Sodium) 7.5 MG/0.6 ML SYRINGE 1 Inj SC DAILY Comments: Last Taken: 03/13/18 Time: 1115 Morphine Sulfate (Ms Contin) 30 MG TABLET.ER 1 Tablet ORAL THREE TIMES DAILY Days = 30 Comments: Last Taken: 03/13/18 Time: 05:35 Acetaminophen (Acetaminophen) 500 MG TABLET 2 Tablet ORAL Q8H as needed for PAIN Comments: Last Taken: 03/10/18 Time: 12:29 Albuterol Sulfate (Albuterol Sulfate) 2.5 MG/3 ML (0.083 %) VIAL.NEB 1 Vial Inhale Solution Q6H Comments: NOT GIVEN IN HOSPITAL Zolpidem Tartrate (Ambien) 5 MG TABLET 1 Tablet ORAL TAKE AT BEDTIME Comments: NOT GIVEN Mineral Oil/Hydrophil Petrolat (Aquaphor Ointment) 396 GM OINT...G. 1 Application On the skin TWICE DAILY as needed for SKIN Comments: NOT GIVEN Bupropion HCl (Bupropion HCl Sr) 150 MG TABLET.ER 1 Tablet ORAL TWICE DAILY Comments: Last Taken: 03/13/18 Time:11:15 Ibuprofen (Ibuprofen) 400 MG TABLET 1.5 Tablet ORAL THREE TIMES DAILY as needed for PAIN Instructions: NOT GIVEN Lubiprostone (Amitiza) 24 MCG CAPSULE 1 Capsule ORAL TWICE DAILY Comments: Last Taken:03/13/18 Time:1114 Mag Hydrox/Al Hydrox/Simeth (Alum-Mag Hydroxide-Simeth Liq) 200 MG-200 MG-20 MG/ 5 ML ORAL.SUSP 30 Milliliters ORAL Q6H as needed for INDIGESTION Comments: NOT GIVEN IN HOSPITAL [METHYLCOBALAMIN] 25 Milligram INJECTABLE DAILY Comments: NOT GIVEN IN HOSPITAL Naloxone HCl (Narcan) 4 MG/ACTUATION SPRAY 1 [place] In the nose As Directed as needed for UNRESPONSIVENESS Comments: NOT GIVEN IN HOSPITAL Soft Lens Rinse-Store Solution (Saline Sensitive Eyes) 360 ML DROPS 2 DROP Both Eyes Q1H as needed for DRY EYES Comments: NOT GIVEN IN HOSPITAL [TRIPLE MIX MOUTHWASH] 10 Milliliters ORAL 4XDAILY as needed for ACID REFLUX Comments: NOT GIVEN Witch Beatriz (Tucks) (Unknown Strength) MED..PAD Unknown Dose RECTALLY 6XDAILY as needed for HEMORRHOIDS Comments: NOT GIVEN Methylnaltrexone Harrison (Relistor) 12 MG/0.6 ML VIAL 12 Milligram IV Q48H Qty = 30 Comments: NOT GIVEN IN HOSPITAL Sennosides (Senna) 8.6 MG TABLET 2 Tablet ORAL Every night Comments: [facility] Pyridoxine HCl (Vitamin B-6) 50 MG TABLET 250 Milligram ORAL QNOON Qty = 30 Melatonin (Melatonin) 3 MG TABLET 1 Tablet ORAL Every night Comments: NOT GIVEN IN HOSPITAL Lidocaine (Lidoderm) 5 % ADH..PATCH 1 Patch On the skin DAILY Instructions: may wear up to 12 hours Comments: NOT GIVEN IN HOSPITAL Torsemide (Demadex) 20 MG TABLET 40 Milligram ORAL Every Morning Qty = 30 Comments: NOT GIVEN IN HOSPITAL Attending MD Review Statement Documenting Attending: Nguyen LOTT,Flor Other Findings: Pleasant elderly lady, No complaints. Discharge today with home care agency.
[2018-03-10 23:00] VITALS: BP 110/60
[2018-03-11 06:29] VITALS: BP 108/4; BP 108/64
--- NOTE | 2018-03-11 11:46 | PN- Housestaff ---
Aden Nunez 03/11/18 1145: Subjective Follow-up For: UTI Right knee pain Anemia Subjective: Patient seen and examined at bedside. He is complaining of pain in the right knee joint which is subsided compared to yesterday. She denies chest pain, palpitation, fever, chill, abdominal pain, diarrhea, constipation, burning micturition Review of Systems Constitutional: Reports: see HPI. Objective Last 24 Hrs of Vital Signs/I&O Vital Signs Date Time Temp Pulse Resp B/P B/P Pulse O2 O2 Flow FiO2 Mean Ox Delivery Rate 03/11 1620 98 Nasal 5.0L Cannula 03/11 1605 85 98 03/11 1600 Nasal 5.0L Cannula 03/11 1505 97.7 87 18 106/74 97 03/11 1300 86 97 03/11 1059 90 128/84 03/11 0809 90 97 03/11 0800 Nasal 5.0L Cannula 03/11 0629 98.0 84 20 108/64 95 03/11 0025 81 95 03/11 0000 BIPAP 03/10 2300 98.1 78 20 110/60 93 Nasal Cannula 03/10 1932 110 94 Intake & Output 03/11 1600 03/11 0800 03/11 0000 Intake Total 480 120 610 Output Total 100 210 Balance 480 20 400 Intake, Oral 480 120 610 Output, Urine 100 210 Physical Exam General Appearance: Alert, Oriented X3, Cooperative Assessment/Plan Assessment: This is a 67 yo Female medical history significant for ALS on Rilutek and infusion, chronic BiPAP, chronic respiratory failure on 4 L nasal cannula, Angela's syndrome, meningioma is admitted to the [facility] service after home health services denied her care.Given her current state of health, she is an extremely unsafe discharge home and was hence admitted to [facility] service to ascertain a plan of care for her. Her vitals in the ED were stable. Labs were only significant for asymptomatic bacteuria. Problems: *ALS *Asymptomatic bacteuria *Right knee sprain Plan: *Psychiatric consultation base, the patient has been no suicidal ideation, diet change from fingers to normal diet. *PT will consult *Case management evaluation *Social work consulted *Prophylaxis for DVT *Full code *Observation *riluzole also discontinued for a less *Pain management done Problem List: 1. Hypothyroidism 2. Hyperlipidemia 3. ALS (amyotrophic lateral sclerosis) 4. UTI (urinary tract infection) Pain Ratin Pain Location: Right knee Pain Goal: Remain pain free Pain Plan: Pain management pathway Tomorrow's Labs & Rationales: cbc Ken LOTT,Amir 03/11/18 1309: Attending MD Review Statement Attending Statement Attending MD Statement: examined this patient, discuss w/resident/PA/BALE STACKER, agreed w/resident/PA/BALE STACKER, reviewed EMR data (avail), discussed with nursing Attending Assessment/Plan: Pt was seen and evaluated. Chart reviewed. Very pleasant elderly lady, reports doing OK. Awaiting home care agency assessment. rest of the plan as per resident's note
[2018-03-11 15:05] VITALS: BP 106/74
[2018-03-11 22:11] VITALS: BP 104/60
[2018-03-12 06:17] VITALS: BP 104/62
[2018-03-12 08:37] LABS: ABSOLUTE BASOPHIL COUNT 0 /CUMM (0.0-0.2); ABSOLUTE EOSINOPHIL COUNT 0 /CUMM (0.0-0.7); ABSOLUTE GRANULOCYTE CT 8.8 /CUMM (1.4-6.5); ABSOLUTE LYMPH COUNT 1.5 /CUMM (1.2-3.4); ABSOLUTE MONOCYTE COUNT 0.2 /CUMM (0.10-0.60); BASOPHIL % 0.1 % (0.0-2.0); EOSINOPHIL % 0.3 % (0-5); GRANULOCYTE % 83.5 % (42.2-75.2); HEMATOCRIT 32.7 % (37-47); MEAN CORPUSCULAR HGB 23.6 PG (27.0-31.0); MEAN CORPUSCULAR HGB CONC 31.3 G/DL (33.0-37.0); MEAN CORPUSCULAR VOLUME 75.3 FL (81.0-99.0); MEAN PLATELET VOLUME 10.3 FL (7.4-10.4); PLATELET COUNT 389 /CUMM (130-400); RBC DISTRIBUTION WIDTH 18.4 % (11.5-14.5); RED BLOOD CELL CT 4.35 /CUMM (4.20-5.40)
[2018-03-12 10:34] LABS: WHITE BLOOD CELL COUNT 10.5 /CUMM (4.8-10.8)
--- NOTE | 2018-03-12 12:06 | PN- Att Addend ---
Attending Addendum Attending Brief Note Ms. Keith was seen and evaluated. Reports doing better today. Vital Signs Date Time Temp Pulse Resp B/P B/P Pulse O2 O2 Flow FiO2 Mean Ox Delivery Rate 03/12 0843 95 03/12 0800 Nasal 5.0L Cannula 03/12 0617 97.9 89 20 104/62 95 03/12 0044 82 97 03/12 0000 BIPAP 03/11 2211 97.8 84 20 104/60 97 03/11 2022 86 95 03/11 1620 98 Nasal 5.0L Cannula 03/11 1605 85 98 03/11 1600 Nasal 5.0L Cannula 03/11 1505 97.7 87 18 106/74 97 03/11 1300 86 97 Intake & Output 03/12 1600 03/12 0800 03/12 0000 Intake Total 300 120 Output Total 300 200 600 Balance -300 100 -480 Intake, IV 120 Intake, Oral 180 120 Number 1 Bowel Movements Output, Urine 300 200 600 GEN: NAD, speaking in full sentences HEENT: moist mucosa LUNGS: CTAB HEART: s1s2 Labs/Diagnostics: no new labs/reviewed A/P: Ms. Karma Keith is a 67 yo lady with PMHx: ALS on Rilutek and infusion, chronic BiPAP, chronic respiratory failure on 4 L nasal cannula, Angela's syndrome, meningioma is admitted to the [facility] service after home health services denied her care.Given her current state of health, she is an extremely unsafe discharge home and was hence admitted to [facility] service to ascertain a plan of care for her. --cont current meds --Awaiting home care agency assessment.
[2018-03-12 15:18] VITALS: BP 110/65
[2018-03-12 22:16] VITALS: BP 100/68
[2018-03-13 06:25] VITALS: BP 122/68
--- NOTE | 2018-03-13 08:32 | PN- Housestaff ---
Libby Mares 03/13/18 0832: Subjective Follow-up For: Asymptomatic bacteuria Subjective: The patient was seen and examined at bedside. She says she is doing well. She does complain of a slight pain on the right side of her chest describing it as the typical pain she gets before "i get a pneumonia". She states she is otherwise doing very well. Review of Systems Constitutional: Reports: see HPI. Objective Last 24 Hrs of Vital Signs/I&O Vital Signs Date Time Temp Pulse Resp B/P B/P Pulse O2 O2 Flow FiO2 Mean Ox Delivery Rate 03/13 1121 130/80 03/13 0903 95 03/13 0800 Nasal 5.0L Cannula 03/13 0625 98.1 84 20 122/68 94 BIPAP 03/13 0000 94 BIPAP 5.0L 03/12 2216 98.3 84 20 100/68 94 Nasal Cannula 03/12 2042 89 95 03/12 1600 Nasal 5.0L Cannula 03/12 1518 98.0 82 20 110/65 95 Nasal Cannula Intake & Output 03/13 1600 03/13 0800 03/13 0000 Intake Total 270 130 Output Total 550 500 Balance -280 -370 Intake, IV 30 30 Intake, Oral 240 100 Number 0 Bowel Movements Output, Urine 550 500 Physical Exam General Appearance: Alert, Oriented X3, Cooperative Skin: No Rashes Neck: Supple Cardiovascular: Regular Rate, Normal S1, Normal S2 Lungs: Clear to Auscultation, Normal Air Movement Abdomen: Normal Bowel Sounds, Soft, No Tenderness Assessment/Plan Assessment: This is a 67 yo Female medical history significant for ALS on Rilutek and infusion, chronic BiPAP, chronic respiratory failure on 4 L nasal cannula, Angela's syndrome, meningioma is admitted to the [facility] service after home health services denied her care.Given her current state of health, she is an extremely unsafe discharge home and was hence admitted to [facility] service to ascertain a plan of care for her. Her vitals in the ED were stable. Labs were only significant for asymptomatic bacteuria. Problems: 1. ALS 2. Asymptomatic bacteuria 3. Right knee sprain 4. Poor social situation The patient is medically stable for discharge. She is going home with home health services later in the day. She would follow up at the [facility] regarding the infusion of her ALS medications. Problem List: 1. Knee sprain 2. Asymptomatic bacteriuria 3. ALS (amyotrophic lateral sclerosis) Pain Ratin Pain Location: none Pain Goal: Remain pain free Pain Plan: none Tomorrow's Labs & Rationales: none Nguyen,Albertopily 03/13/18 1304: Attending MD Review Statement Attending Statement Attending MD Statement: examined this patient, discuss w/resident/PA/[facility] [employer], agreed w/resident/PA/[employer] [employer], discussed with family, reviewed EMR data (avail), discussed with nursing, discussed with case mgmt, reviewed images, amended to note Attending Assessment/Plan: Pt was seen and evaluated. Pleasant elderly lady, No complaints. Discharge today with home care agency.
[2018-03-13 11:21] VITALS: BP 130/80
== END 2018-03-13 13:34 | disposition home health service (06) | DRG 57 ==
LOC: ERH 08:52 → 2NA 03-09 16:25 → ERHI 03-09 16:25 → ENTRNSPT 03-09 17:23 → 2NA 03-09 17:27 → EDTRNSPTSTS 03-09 17:46 → EDTRNSPT 03-09 17:46 → 2NA 03-09 18:25 → CMPTRNSPT 03-09 18:39 → 2NA 03-10 00:19
PROVIDERS: Emergency Medicine; Preventive Medicine Addiction Medicine; Student in an Organized Health Care Education/Training Program
PROC: 5A09457 Assistance with Respiratory Ventilation, 24-96 Consecutive Hours, Continuous Positive Airway Pressure (ICD-10-PCS; principal; 2018-03-09)
DX: G12.21 Amyotrophic lateral sclerosis (principal); J96.11 Chronic respiratory failure with hypoxia; I24.1 Dressler's syndrome; Z99.3 Dependence on wheelchair; F32.9 Major depressive disorder, single episode, unspecified; R53.81 Other malaise; D32.9 Benign neoplasm of meninges, unspecified; Z88.6 Allergy status to analgesic agent; Z79.82 Long term (current) use of aspirin; Z79.891 Long term (current) use of opiate analgesic; Z79.51 Long term (current) use of inhaled steroids; Z90.710 Acquired absence of both cervix and uterus; Z60.9 Problem related to social environment, unspecified; S83.91XA Sprain of unspecified site of right knee, initial encounter; F43.9 Reaction to severe stress, unspecified; R82.71 Bacteriuria; D64.9 Anemia, unspecified
CPT/HCPCS: 2NAP; 2NASP; 36592; 81001; 82436; 87086; 97110-GO; 97116-GO; 97162-GP; 97530-GO; 99233; J0131; J0696; J1652; J1953; J3101; J3490